=== PATIENT | female | born 1960 | race Caucasian/White ===

== ENCOUNTER 2018-01-04 10:28 | Inpatient (IN) | payer OTHER ==
[~2018-01-04] VITALS: Ht 165.1 cm; Wt 156.2 kg
[~2018-01-04 10:28] MED LIST: BENADRYL ALLERG25 MG PO; BENADRYL CREAM15 GM TOP; CLARITIN10 MG PO; CLEOCIN HCL300 M1 PO; FAMOTIDINE20 MG PO; FUROSEMIDE40 M1 PO; KEFLEX250 M1 PO; MOTRIN 400 MG400 MG PO
--- NOTE | 2018-01-04 11:07 | ED GI/GU/ABDOMINAL COMPLAINT ---
History of Present Illness General Chief Complaint: Abdominal Pain/Flank Pain Stated Complaint: ABD PAIN, ?HERNIA Source: patient, old records Exam Limitations: no limitations Vital Signs & Intake/Output Vital Signs & Intake/Output Vital Signs Date Time Temp Pulse Resp B/P B/P Pulse O2 O2 Flow FiO2 Mean Ox Delivery Rate 01/04 1909 98.5 88 20 138/67 94 Room Air 01/04 1741 98.3 86 20 141/63 93 Room Air 01/04 1410 98.7 88 20 136/64 94 Room Air 01/04 1257 98.4 88 20 123/63 94 Room Air 01/04 1033 97.3 87 20 142/81 94 Room Air Allergies Coded Allergies: cephalexin ([facility] 01/04/18) diphenhydramine (From BENADRYL) ([facility] 01/04/18) sulfamethoxazole (From BACTRIM) ([facility] 01/04/18) trimethoprim (From BACTRIM) ([facility] 01/04/18) Reconcile Medications Ibuprofen 400 MG TABLET 1 TAB PO Q6P PRN PAIN (Reported) Triage Note: PT TO ED C/O ABD PAIN X 2 DAYS, WORSE LAST NIGHT. STATES ABD FEELS HARD. H/O HERNIA SURGERY A FEW YEARS, STATES IT FEELS THE SAME. C/O N/V. Triage Nurses Notes Reviewed? yes LMP (ages 10-50): post menopausal ? N Is pt currently ? No Onset: Monday01/01/18 Duration: day(s):, getting worse Timing: remote history Quality/Severity: cramping, colicky Severity Numbers: 7 Location: groin, infraumbilical Radiation: no radiation Activities at Onset: none Prior Abdominal Problems: similar symptoms, incarcerated umbilical hernia s/p laproscopic repair with mesh HPI: 57F PMH incarcerated umbilical hernia s/p repair with mesh 2012 presents from home with four day history of nausea, vomiting, crampy colicky abdominal pain, decreased PO intake, diarrhea and decreased bowel movements with no flatus passed day of presentation. States that on Monday, she had nausea and vomiting of mucinous material, with abdominal cramping and one episode of diarrhea. States that she took off work on Monday given the symptoms, however continued to have crampy colicky abdominal pain rated 7 out of 10 nonradiating in the bilateral groin area. States that Monday night her stomach started to become more tense, and began having some dizziness with standing as well as continue vomiting and diarrhea. States that her last bowel movement was on Monday night. States that she had passed flatus on Monday, however today she has not had any flatus. States she has taken ibuprofen which only helped mildly. States that this pain feels similar to how her last hernia presented when it was strangulated back in 2012. States that there has been a viral bug going around at work, although she says she is more concerned about the abdomen tenseness and the decrease in bowel movements. Denies fevers, chills, night sweats, chest pain, shortness of breath, urinary symptoms, or increased lower extremity edema. States that she has chronic right lower extremity wounds, of which she sees the project controls specialist, but was unable to change her bandages yesterday given her abdominal pain. (Ondina VARELA,Marcelino) Past History Travel History Traveled to [place] past 21 day No Medical History Any Pertinent Medical History? none Neurological: NONE EENT: NONE Cardiovascular: NONE Respiratory: NONE Gastrointestinal: GERD Hepatic: NONE Renal: NONE Musculoskeletal: NONE Psychiatric: NONE Endocrine: NONE Blood Disorders: NONE Cancer(s): NONE RESOLUTION MANAGER/Reproductive: NONE History of MRSA: Yes History of VRE: No History of CDIFF: No Surgical History Surgical History: hernia repair-ventral (October 2012 with mesh) Psychosocial History Who do you live with Sister Services at Home None What is your primary language Romanian Tobacco Use: Current Daily Use Daily Tobacco Use Amount/Type: => 5 Cigarettes daily (20+ pack years) ETOH Use: denies use Illicit Drug Use: denies illicit drug use Family History Hx Contributory? No Employment History Employment Employed Profession/Employer Works as a handicapped tow car driver (Ondina VARELA,Marcelino) Review of Systems Review of Systems Constitutional: Reports: see HPI. Denies: chills, fever. EENTM: Reports: no symptoms. Respiratory: Denies: cough, short of breath. Cardiovascular: Denies: chest pain, palpitations. GI: Reports: abdominal pain, bloating, constipation, diarrhea, distention, nausea, vomiting. Genitourinary: Denies: discharge, dysuria, frequency. Musculoskeletal: Denies: back pain. Skin: Reports: dryness, erythema (RLE). (Marcelino Nj MD) Physical Exam Physical Exam General Appearance: well developed/nourished, alert, awake, anxious, obese Head: atraumatic Eyes: Bilateral: normal appearance. Ears, Nose, Throat, Mouth: hearing grossly normal Respiratory: normal breath sounds, lungs clear Cardiovascular: regular rate/rhythm, normal peripheral pulses Gastrointestinal: distention, tenderness, hernia, mass (reducible to inferior aspect), no peritoneal signs Rectal: deferred Extremities: tenderness (RLE), chronic wound to RLE, per patient is dryer than normal 2/2 decreased PO intake, redness, ulceration to lateral aspect approx 5 inch above lat malleoli Skin: warm/dry Core Measures ACS in differential dx? No Sepsis Present: No Sepsis Focused Exam Completed? No (Marcelino Nj MD) Progress Differential Diagnosis: bowel obstruction, gastritis, hernia, ovarian cyst, SBO Plan of Care: Orders Procedure Date/time Status Nothing by Mouth 01/05 B Active CBC WITHOUT DIFFERENTIAL 01/05 0600 Active BASIC ELECTROLYTES PLUS BUN&CR 01/05 0600 Active Pathway - chart 01/04 1704 Active ED Holding Orders 01/04 1633 Active Admit to inpatient 01/04 1633 Active Vital Signs 01/04 1633 Active Code Status 01/04 1633 Active Admit to inpatient 01/04 1630 Active Patient Data 01/04 1630 Active Add-on Test (ER Only) 01/04 1509 Active Intake & Output 01/04 1210 Active LACTIC ACID 01/04 1203 Complete URINALYSIS 01/04 1134 Complete COMPREHENSIVE METABOLIC PANEL 01/04 1134 Complete CBC WITHOUT DIFFERENTIAL 01/04 1134 Complete TRC EVALUATION (GEN) 01/04 UNK Active VTE Mechanical Prophylaxis 01/04 UNK Active Vital Signs 01/04 UNK Active Intake & Output 01/04 UNK Active Activity/Ambulation 01/04 UNK Active Current Medications Sig/Bria Start time Last Medication Dose Stop Time Status Admin Heparin Sodium 5,000 UNIT Q8 01/04 2200 AC (Porcine) Pantoprazole Sodium 40 MG DAILY 01/04 1704 AC 01/04 (Protonix) 1723 Acetaminophen 650 MG Q6P PRN 01/04 1700 AC (Tylenol) Dextrose/Sodium 1,000 ML .[id number] 01/04 1700 AC 01/04 Chloride 1723 (D5W-1/2 Normal Saline 1000ML) Ondansetron HCl 4 MG Q6P PRN 01/04 170 AC (Zofran) Oxycodone/ 1 TAB Q4P PRN 01/04 170 AC Acetaminophen (Percocet) Oxycodone/ 2 TAB Q4P PRN 01/04 1700 AC 01/04 Acetaminophen 1723 (Percocet) Promethazine HCl 25 MG Q6P PRN 01/04 1700 AC (Phenergen) 01/11 1659 Laboratory Tests 01/04/18 1336: Urinalysis LIGHT H, Urine Color YEL, Urine Clarity HAZY H, Urine pH 7.5, Ur Specific [place] 1.015, Urine Protein NEG, Urine Ketones NEG, Urine Nitrite NEG, Urine Bilirubin NEG, Urine Urobilinogen 0.2, Ur Leukocyte Esterase NEG, Ur Microscopic SEDIMENT EXAMINED, Urine RBC 1-3, Urine WBC 1-3 H, Ur Epithelial Cells MANY H, Urine Bacteria FEW H, Hyaline Casts RARE H, Urine Mucus MOD H, Urine Hemoglobin NEG, Urine Glucose NEG 01/04/18 1203: Anion Gap 7, Estimated GFR > 60, BUN/Creatinine Ratio 18.0, Glucose 121 H, Lactic Acid 1.2, Calcium 8.9, Total Bilirubin 0.5, AST 14, ALT 19, Alkaline Phosphatase 82, Total Protein 6.2 L, Albumin 3.3 L, Globulin 2.9, Albumin/ Globulin Ratio 1.1, CBC w Diff NO MAN DIFF REQ, RBC 4.70, MCV 88.4, MCH 29.5, MCHC 33.3, RDW 15.2 H, MPV 7.1 L, Gran % 85.5 H, Lymphocytes % 9.8 L, Monocytes % 3.9, Eosinophils % 0.1, Basophils % 0.7, Absolute Granulocytes 9.2 H, Absolute Lymphocytes 1.0 L, Absolute Monocytes 0.4, Absolute Eosinophils 0, Absolute Basophils 0.1 Radiology read came back with impression stating nondilated and dilated small- bowel loops in hernia sac with transition point suspicious for obstruction. Consult placed with surgeon professional wrestler. Spoke with surgical PA, orders are placed to admit patient to surgical service for management of SBO. Diagnostic Imaging: Viewed by Me: CT Scan. Radiology Impression: acute abnormality Initial ED EKG: none (Ondina VARELA,Marcelino) Departure Departure Disposition: STILL A PATIENT Condition: Stable Clinical Impression Primary Impression: SBO (small bowel obstruction) Referrals: Patient Has No Primary Care Dr (PCP/Family) Departure Forms: Customer Survey General Discharge Information (Ondina VARELA,Marcelino) Admission Note Documentation of Exam: Documentation of any treatments & extenuating circumstances including Concerns Regarding Discharge (functional status, medication knowledge or non-compliance, living conditions, etc.) that warrant an admission rather than observation: [ abdominal hernia, small bowel obstruction, may require operative v nonoperative approach.] Resident Co-Sign Statement Statement: ED Attending supervision documentation- [] I saw and evaluated the patient. I have also reviewed all the pertinent lab results and diagnostic results. I agree with the findings and the plan of care as documented in the Resident's documentation. Patient with large tender abdominal hernia with lack of flatus or stool x [address] consistent with SBO associated with hernia. Admitted to surgery. [] I have reviewed the ED Record and agree with the Resident's documentation. [] Additions or exceptions (if any) to the Resident's note and plan are summarized below: [] (Lynda VARELA, Chad)
[2018-01-04] MEDS ORDERED: IBUPROFEN400 M1 PO (11:48)
[2018-01-04 12:20] LABS: ABSOLUTE BASOPHIL COUNT 0.1 /CUMM (0.0-0.2); ABSOLUTE EOSINOPHIL COUNT 0 /CUMM (0.0-0.7); ABSOLUTE GRANULOCYTE CT 9.2 /CUMM (1.4-6.5); ABSOLUTE MONOCYTE COUNT 0.4 /CUMM (0.10-0.60); BASOPHIL % 0.7 % (0.0-2.0); EOSINOPHIL % 0.1 % (0-5); HEMATOCRIT 41.5 % (37-47); MEAN CORPUSCULAR HGB 29.5 PG (27.0-31.0); MEAN CORPUSCULAR HGB CONC 33.3 G/DL (33.0-37.0); MEAN CORPUSCULAR VOLUME 88.4 FL (81.0-99.0); MEAN PLATELET VOLUME 7.1 FL (7.4-10.4); PLATELET COUNT 353 /CUMM (130-400); RBC DISTRIBUTION WIDTH 15.2 % (11.5-14.5); WHITE BLOOD CELL COUNT 10.7 /CUMM (4.8-10.8)
[2018-01-04 12:33] LABS: GRANULOCYTE % 85.5 % (42.2-75.2)
--- NOTE | 2018-01-04 14:25 | CT SCAN REPORT ---
EXAMINATION: CT ABDOMEN AND PELVIS WITH CONTRAST CLINICAL INFORMATION: No flatus today, last BM yesterday, history of abdominal surgery, obese, cramping. Evaluate for SBO. COMPARISON: CT of the abdomen and pelvis 10/29/2012. TECHNIQUE: Multidetector volumetric imaging was performed of the abdomen and pelvis following IV administration of 95 mL of Optiray 320 intravenous contrast. Sagittal and coronal reformatted images were obtained on the technologist's workstation. DLP: 1690.21 mGy-cm. FINDINGS: LUNG BASES: The visualized lung bases are unremarkable. LIVER, GALLBLADDER, AND BILIARY TREE: The liver is normal in size, shape, and attenuation. No focal hepatic lesion or biliary ductal dilatation is present. Cholelithiasis is again noted. PANCREAS: Unremarkable. SPLEEN: Unremarkable. ADRENAL GLANDS: A 1.6 cm right adrenal adenoma is unchanged. The left adrenal gland is unremarkable. KIDNEYS AND URETERS: The kidneys are normal in size, shape, and attenuation. No hydronephrosis, hydroureter, or calculi seen. No perinephric stranding. BLADDER: Unremarkable. GASTROINTESTINAL TRACT: A portion of the transverse colon enters the large ventral hernia. There is no dilatation of the colon. There are multiple loops of small bowel within the large ventral hernia. Most of these are nondilated. However, there is a dilated segment of small bowel with some fecalization of contents. There is 1 transition point of dilated to nondilated small bowel in the right side of the hernia. ABDOMINAL WALL: There has been an increase in size of a large ventral hernia containing small and large bowel as described above. There is also a small amount of fluid. LYMPH NODES: Normal. VASCULAR: Unremarkable. PELVIC VISCERA: Unremarkable. OSSEOUS STRUCTURES: Unremarkable. IMPRESSION: 1. Cholelithiasis again noted. 2. No change in 1.6 cm right adrenal adenoma. 3. Increase in size of a large ventral hernia containing a portion of the transverse colon and multiple small-bowel loops. There are nondilated and dilated small-bowel loops in the hernia sac with a transition point in the right side of the sac suspicious for an obstruction at this point. The etiology is uncertain but could be an adhesion.
--- NOTE | 2018-01-04 16:51 | History & Physical Pre-Op ---
Rylan Zaman 01/04/18 1639: General Information and HPI MD Statement: I have seen and personally examined MENDEL VALDERRAMA and documented this H&P. The patient is a 57 year old F who presented with a patient stated chief complaint of [lower abdominal pain, hernia]. Source of Information: patient Exam Limitations: no limitations History of Present Illness: This is a 57-year-old female who has a history of an incarcerated ventral hernia with repair and lysis of adhesion, repair with mesh in October 2012 by Abhay Becerra MD who presents to the ER with worsening lower abdominal pain about her recurrent hernia, swelling and intermittent nausea. She states that a few months after her initial ventral hernia repair she started noticing the hernia returning, it was moderate in size until approximately a week or so ago when she noticed it getting larger and became more painful. 2 days ago she had worsening pain, had nausea, vomited a small amount. She considered it being a viral illness and did not seek medical care until today when her abdominal hernia got noticeably larger and more painful. She underwent CT scanning while in the emergency department which showed a large ventral hernia with possible small bowel obstruction and surgery was consulted for further management. Of note, patient has chronic cellulitis of her bilateral lower extremities, currently has a open wound to her right pretibial area and is erythematous, she has not been on antibiotics as outpatient however she is frequently on antibiotics for this. She denies any fever or flulike illness. She has a dressing on, she gets small amount of thin serous drainage from this area and has been caring for it at home herself. Allergies/Medications Allergies: Coded Allergies: cephalexin ([facility] 01/04/18) diphenhydramine (From BENADRYL) ([facility] 01/04/18) sulfamethoxazole (From BACTRIM) ([facility] 01/04/18) trimethoprim (From BACTRIM) ([facility]/04/18) Home Med list Ibuprofen 400 MG TABLET 1 TAB PO Q6P PRN PAIN (Reported) Past History Medical History Neurological: NONE EENT: NONE Cardiovascular: NONE Respiratory: NONE Gastrointestinal: GERD Hepatic: NONE Renal: NONE Musculoskeletal: NONE Psychiatric: NONE Endocrine: NONE Blood Disorders: NONE Cancer(s): NONE ASSET CARD CLERK/Reproductive: NONE Other Medical Hx: Morbid obesity ventral hernia History of MRSA: Yes History of VRE: No History of CDIFF: No Surgical History Pertinent Surgical History: hernia repair-ventral (October 2012 with mesh) Past Family/Social History Psychosocial History Services at Home None Smoking Status: Current Everyday Smoker ETOH Use: denies use Illicit Drug Use: denies illicit drug use Functional Ability ADLs Independent: dressing, eating, toileting, bathing. Ambulation: independent IADLs Independent: shopping, housework, finances, food prep, telephone, transportation , medication admin. 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 Constitutional: No chills fever or weight loss HEENT: No visual changes no sore throat no congestion Cardiovascular: No chest pain ,palpitation , chronic lower extremity edema Skin: Acute and chronic skin changes bilateral lower extremities Respiratory: No dyspnea cough sputum or hemoptysis GI: See HPI : No dysuria no hematuria Musclulo skeletal: No back pain no neck pain, Neurologic: No numbness no confusion Psych: No stress anxiety or depression,. Heme/endocrine: No bruising no bleeding no polyuria or polydipsia Immunology: No splenectomy or history of AIDS Exam & Diagnostic Data Last 24 Hrs of Vital Signs/I&O Vital Signs Date Time Temp Pulse Resp B/P B/P Pulse O2 O2 Flow FiO2 Mean Ox Delivery Rate 01/04 1410 98.7 88 20 136/64 94 Room Air 01/04 1257 98.4 88 20 123/63 94 Room Air 01/04 1033 97.3 87 20 142/81 94 Room Air Intake & Output 01/04 1600 01/04 0800 01/04 0000 Intake Total Output Total Balance Patient 347 lb Weight Weight Standing Scale Measurement Method Physical Exam: Well-developed well-nourished no apparent distress. Patient appears comfortable HEENT: Atraumatic, extraocular motion intact Neck: Supple, no lymphadenopathy Heart: Regular rate and rhythm no murmur Respiratory: No respiratory distress clear to auscultation bilateral Abdomen: morbid obesity Normal bowel sounds Large lower abdominal hernia at the midline, small amount of erythema induration and swelling at the inferior portion of the hernia on the skin surface. Hernia is firm, nonreducible, mildly tender. Extremities: 2+ lower extremity edema bilaterally. Chronic erythema and skin surface changes bilaterally to the pretibial region, dry skin insulin sloughing noted, small wound pretibial region right lower extremity with scant serous drainage, mild warmth and surrounding erythema Neuro: Alert and oriented x3 Psych: Mood affect normal, normal memory normal judgment. Skin: Warm and dry, no rash on exposed skin Last 24 Hrs of Labs/Jay: Laboratory Tests 01/04/18 1336: Urinalysis LIGHT H, Urine Color YEL, Urine Clarity HAZY H, Urine pH 7.5, Ur Specific [place] 1.015, Urine Protein NEG, Urine Ketones NEG, Urine Nitrite NEG, Urine Bilirubin NEG, Urine Urobilinogen 0.2, Ur Leukocyte Esterase NEG, Ur Microscopic SEDIMENT EXAMINED, Urine RBC 1-3, Urine WBC 1-3 H, Ur Epithelial Cells MANY H, Urine Bacteria FEW H, Hyaline Casts RARE H, Urine Mucus MOD H, Urine Hemoglobin NEG, Urine Glucose NEG 01/04/18 1203: Anion Gap 7, Estimated GFR > 60, BUN/Creatinine Ratio 18.0, Glucose 121 H, Lactic Acid 1.2, Calcium 8.9, Total Bilirubin 0.5, AST 14, ALT 19, Alkaline Phosphatase 82, Total Protein 6.2 L, Albumin 3.3 L, Globulin 2.9, Albumin/ Globulin Ratio 1.1, CBC w Diff NO MAN DIFF REQ, RBC 4.70, MCV 88.4, MCH 29.5, MCHC 33.3, RDW 15.2 H, MPV 7.1 L, Gran % 85.5 H, Lymphocytes % 9.8 L, Monocytes % 3.9, Eosinophils % 0.1, Basophils % 0.7, Absolute Granulocytes 9.2 H, Absolute Lymphocytes 1.0 L, Absolute Monocytes 0.4, Absolute Eosinophils 0, Absolute Basophils 0.1 Diagnostic Data Other Results PATIENT: MENDEL VALDERRAMA PRESENT AGE: 57 PATIENT ACCOUNT NO: [id number] : 62 LOCATION: [facility] ORDERING PHYSICIAN: Marcelino Nj MD SERVICE DATE: 01/04/18 EXAM TYPE: CAT - CT ABD & PELVIS W IV CONTRAST EXAMINATION: CT ABDOMEN AND PELVIS WITH CONTRAST CLINICAL INFORMATION: No flatus today, last BM yesterday, history of abdominal surgery, obese, cramping. Evaluate for SBO. COMPARISON: CT of the abdomen and pelvis 10/29/2012. TECHNIQUE: Multidetector volumetric imaging was performed of the abdomen and pelvis following IV administration of 95 mL of Optiray 320 intravenous contrast. Sagittal and coronal reformatted images were obtained on the technologist's workstation. DLP: 1690.21 mGy-cm. FINDINGS: LUNG BASES: The visualized lung bases are unremarkable. LIVER, GALLBLADDER, AND BILIARY TREE: The liver is normal in size, shape, and attenuation. No focal hepatic lesion or biliary ductal dilatation is present. Cholelithiasis is again noted. PANCREAS: Unremarkable. SPLEEN: Unremarkable. ADRENAL GLANDS: A 1.6 cm right adrenal adenoma is unchanged. The left adrenal gland is unremarkable. KIDNEYS AND URETERS: The kidneys are normal in size, shape, and attenuation. No hydronephrosis, hydroureter, or calculi seen. No perinephric stranding. BLADDER: Unremarkable. GASTROINTESTINAL TRACT: A portion of the transverse colon enters the large ventral hernia. There is no dilatation of the colon. There are multiple loops of small bowel within the large ventral hernia. Most of these are nondilated. However, there is a dilated segment of small bowel with some fecalization of contents. There is 1 transition point of dilated to nondilated small bowel in the right side of the hernia. ABDOMINAL WALL: There has been an increase in size of a large ventral hernia containing small and large bowel as described above. There is also a small amount of fluid. LYMPH NODES: Normal. VASCULAR: Unremarkable. PELVIC VISCERA: Unremarkable. OSSEOUS STRUCTURES: Unremarkable. IMPRESSION: 1. Cholelithiasis again noted. 2. No change in 1.6 cm right adrenal adenoma. 3. Increase in size of a large ventral hernia containing a portion of the transverse colon and multiple small-bowel loops. There are nondilated and dilated small-bowel loops in the hernia sac with a transition point in the right side of the sac suspicious for an obstruction at this point. The etiology is uncertain but could be an adhesion. DICTATED BY: Audie Stein MD DATE/TIME DICTATED:01/04/181346 TRAY DELIVERY AIDE:NESHA DATE/TIME TRANSCRIBED:01/04/181346 CONFIDENTIAL, DO NOT COPY WITHOUT APPROPRIATE AUTHORIZATION. <Electronically signed in Other Vendor System> SIGNED BY: Audie Stein MD 1425 Assessment/Plan Assessment/Plan: 57-year-old female with a history of strangulated bowel secondary to ventral hernia has a recurrent ventral hernia with incarcerated bowel with possible small bowel obstruction Patient does not require urgent surgery at this time however she will be admitted and monitoring of her clinical status with serial exams, bowel rest, n.p.o., IV fluids, pain medication as needed, iv antiemetics. Will treat with Gastrografin at 10 PM tonight and repeat Multiview abdominal x-ray in the morning to see if her bowel is functioning. If her obstruction becomes worse, will place NG tube and if there are signs of incarceration she will require urgent surgical intervention. We will obtain wound consult in the morning for the right lower extremity chronic cellulitis and chronic wound patient seen by Dr. Kline as well. Patient understands and agrees with plan As Ranked By This Provider Problem List: 1. Incarcerated ventral hernia Eliud JOSÉLuiz 01/04/181924: Attending MD Review Statement Attending Statement Attending MD Statement: examined this patient, discuss w/resident/PA/DIRECTOR OF LABOR AND DELIVERY, agreed w/resident/PA/DIRECTOR OF LABOR AND DELIVERY, discussed with family, reviewed EMR data (avail), reviewed images Attending Assessment/Plan: Patient seen and examined, agree with above. Patient with a large hernia, clinically likely present for many years. She did have laparoscopic repair ~5 years ago and thinks it recurred within a couple of months. 4-5 days ago she started not feeling well and having abdominal cramps with N/V, over the last couple of days pain worsened and she could not eat much so she came to the ED. In the Ed at time of exam she stated her pain was gone and she was no longer nauseous after a dose of tylenol. AVSS. Abd-obese, large periumbilical ventral hernia, soft, non-reducible. CT scan shows a large hernia with small and large bowel and a ?obstruction within the the hernia. Will admit, NPO/IVF. I explained to the patient that an ideal repair would involve preoperative weight loss as her risk of recurrence and complications is very high at this weight. If her pain and other symptoms do not improve then we may need to do repair despite the risks relieve the obstruction. Will give gastrograffin tonight and evaluate for an obstruction with AXR in AM and plan further care accordingly. Will also get wound care to evaluate her LE in the AM.
--- NOTE | 2018-01-04 17:00 | Admission Core Measures ---
Acute Coronary Syndrome (CM) ACS Core Measures Acute Coronary Syndrome Diagnosis No Congestive Heart Failure (NEW) CHF Core Measures Congestive Heart Failure Diagnosis No Cerebrovascular Accident CVA Core Measures CVA/TIA Diagnosis No Venous Thromboembolism VTE Core Lou (View Protocol) VTE Risk Factors Age>40 No Mechanical VTE Prophylaxis d/t N/A MechProphylax Ordered No VTE Pharm Prophylaxis d/t NA PharmProphylax ordered Problem List As ranked by this Provider includes Assessment & Plan 1. Incarcerated ventral hernia HOME MEDS Home Med List Ibuprofen 400 MG TABLET 1 TAB PO Q6P PRN PAIN (Reported)
[2018-01-04 23:28] VITALS: BP 113/67
[2018-01-05 07:00] VITALS: BP 129/74
--- NOTE | 2018-01-05 07:21 | PN- Student ---
See Addendum Tiff Kaye 01/05/18 0715: Subjective Subjective: 57 yo f smoker w/ hx of obesity and RLE cellulitis s/p ventral hernia repair is HD 2 for SBO likely 2/2 incarcerated ventral hernia was seen at bedside. Pt had no acute events overnight, complained of nausea around 1 am, persistent discomfort, and pain only with coughing. Pt last BM was yesterday evening after admission that were "small chunks." Pt passed flatus last night and a little this morning, voiding urine spontenously. Overall, reports improvement from yesterday. Pt denies sob, chest pain, fever, chills, nausea or vomitting. Objective Objective: Vital Signs Date Time Temp Pulse Resp B/P B/P Pulse O2 O2 Flow FiO2 Mean Ox Delivery Rate 01/04 2328 97.8 81 20 113/67 92 Room Air 01/04 1909 98.5 88 20 138/67 94 Room Air 01/04 1741 98.3 86 20 141/63 93 Room Air 01/04 1410 98.7 88 20 136/64 94 Room Air 01/04 1257 98.4 88 20 123/63 94 Room Air 01/04 1033 97.3 87 20 142/81 94 Room Air Intake & Output 01/05 0800 01/05 0000 01/04 1600 Intake Total 480 225 Output Total Balance 480 225 Intake, IV 450 225 Intake, Oral 30 0 Number 0 0 Bowel Movements Patient 344 lb 347 lb Weight Weight Bed scale Standing Scale Measurement Method Gen: obese, middle aged female, appears older than stated age, in mild distress CV: RRR, no m/r/g Respiratory: vesicular b/l, poor respirtory effort Abdomen: morbid obesity and distended, large abdomin with protuding ventral hernia right of midline that is firm and non-reducible Ext: chronic pretibial erythema, dry and flaky chronic wound on right pretibial area w/ minimal amounts of pus and serous drainage, surrounding warmth and erythema Psych: Alert and oriented, mood affect normal, memory and judgment intact Results Results: Laboratory Tests 01/04/18 1336: Urinalysis LIGHT H, Urine Color YEL, Urine Clarity HAZY H, Urine pH 7.5, Ur Specific [place] 1.015, Urine Protein NEG, Urine Ketones NEG, Urine Nitrite NEG, Urine Bilirubin NEG, Urine Urobilinogen 0.2, Ur Leukocyte Esterase NEG, Ur Microscopic SEDIMENT EXAMINED, Urine RBC 1-3, Urine WBC 1-3 H, Ur Epithelial Cells MANY H, Urine Bacteria FEW H, Hyaline Casts RARE H, Urine Mucus MOD H, Urine Hemoglobin NEG, Urine Glucose NEG 01/04/18 1203: Anion Gap 7, Estimated GFR > 60, BUN/Creatinine Ratio 18.0, Glucose 121 H, Lactic Acid 1.2, Calcium 8.9, Total Bilirubin 0.5, AST 14, ALT 19, Alkaline Phosphatase 82, Total Protein 6.2 L, Albumin 3.3 L, Globulin 2.9, Albumin/ Globulin Ratio 1.1, CBC w Diff NO MAN DIFF REQ, RBC 4.70, MCV 88.4, MCH 29.5, MCHC 33.3, RDW 15.2 H, MPV 7.1 L, Gran % 85.5 H, Lymphocytes % 9.8 L, Monocytes % 3.9, Eosinophils % 0.1, Basophils % 0.7, Absolute Granulocytes 9.2 H, Absolute Lymphocytes 1.0 L, Absolute Monocytes 0.4, Absolute Eosinophils 0, Absolute Basophils 0.1 Assessment/Plan Assessment: 57yo f w/ hx of obesity, HTN, OA, RCC s/p r. nephrectomy is HD 5 for SBO 2/2 strangulated ventral hernia being conserveratively managed due to multiple comorbid conditions, symptomatic improvement. Plan: Keep NPO NPO/IVF Pain management Wound care to chronic pretibial wound F/u AM gastrograffin and axr to evaluate and plan further care Latanya Lin 01/05/18 0738: Assessment/Plan Plan: agree with student note above This 57-year-old morbidly obese female with a history of strangulated bowel secondary to recurrent ventral hernia with incarcerated bowel and associated sbo, which may be resolving with +flatus overnight awaiting xray this morning s/p gastrograffin last night f/u labs continue npo / ivf for now wound care consult for chronic lower extremity wound hep sc - dvt ppx oob/ambulation as able will d/w
[2018-01-05 10:35] LABS: ABSOLUTE BASOPHIL COUNT 0 /CUMM (0.0-0.2); ABSOLUTE EOSINOPHIL COUNT 0.2 /CUMM (0.0-0.7); ABSOLUTE GRANULOCYTE CT 4.5 /CUMM (1.4-6.5); ABSOLUTE MONOCYTE COUNT 0.4 /CUMM (0.10-0.60); BASOPHIL % 0.3 % (0.0-2.0); EOSINOPHIL % 2.4 % (0-5); GRANULOCYTE % 63.2 % (42.2-75.2); HEMATOCRIT 37.6 % (37-47); MEAN CORPUSCULAR HGB 29.5 PG (27.0-31.0); MEAN CORPUSCULAR HGB CONC 32.9 G/DL (33.0-37.0); MEAN CORPUSCULAR VOLUME 89.6 FL (81.0-99.0); MEAN PLATELET VOLUME 7.1 FL (7.4-10.4); PLATELET COUNT 297 /CUMM (130-400); RBC DISTRIBUTION WIDTH 14.9 % (11.5-14.5); RED BLOOD CELL CT 4.19 /CUMM (4.20-5.40); WHITE BLOOD CELL COUNT 7.1 /CUMM (4.8-10.8)
--- NOTE | 2018-01-05 13:39 | RADIOLOGY REPORT ---
EXAMINATION: XR ABDOMEN MULTIPLE VIEWS CLINICAL INDICATION: By mouth Gastrografin at 10:00 PM on 01/04/2018. Presence of diagnosis of incarcerated hernia COMPARISON: 01/04/2018 CT of the abdomen and pelvis. TECHNIQUE: 2 views of the abdomen. FINDINGS: Contrast material is seen throughout the entirety of the nondistended colon. The colon is tortuous. Small bowel loops contain scattered foci of gas without obvious distention. IMPRESSION: Contrast is seen throughout the extent of the nondistended colon.
--- NOTE | 2018-01-05 14:05 | PN- Student ---
See Addendum Subjective Subjective: Pt d/w Lauren @ wound care. Dressing on right pretibial wound changed w/ xeroform , abd pad per pt request, and curlex wrapped loosely by student. Minimal serosanguinous drainage.
[2018-01-05 14:58] VITALS: BP 120/72
[2018-01-05 21:53] VITALS: BP 102/66
[2018-01-06 06:00] VITALS: BP 124/60
--- NOTE | 2018-01-06 09:30 | PN- General Surgery ---
Subjective Subjective: Tolerating fulls. No nausea and +bm last night. Reports slight abdominal discomfort / soreness only with coughing. Seen by Lauren from wound care yesterday, who evaluated and dressed her lower extremity wounds. Patient understands plan for elective repair of ventral hernia, which she hopes to do after she obtains insurance and loses weight. Objective Vital Signs and I&Os Vital Signs Date Time Temp Pulse Resp B/P B/P Pulse O2 O2 Flow FiO2 Mean Ox Delivery Rate 01/06 0600 98.2 78 20 124/60 91 Room Air 01/05 2153 98.2 80 18 102/66 92 Room Air 01/05 1458 98.2 84 20 120/72 93 01/05 1137 Room Air Room Air Intake & Output 01/06 1600 01/06 0801/06 0000 01/05 1600 01/05 0801/05 0000 Intake Total 200 400 980 480 225 Output Total Balance 200 400 980 480 225 Intake, IV 500 450 225 Intake, Oral 200 400 480 30 0 Number 1 0 0 Bowel Movements Patient 344 lb Weight Weight Bed scale Measurement Method Physical Exam: General - alert & oriented x 3. comfortable. no acute distress. Lungs - clear bilaterally. no w/r/r. Cardiac - s1s2. reg. Abdomen - morbidly obese. large ventral hernia remains unchanged. some tenderness with palpation. not diffusely tender. Extremities - warm bilaterally. dressing on right pretibial wound intact ( changed yesterday by Lauren w/ xeroform, abd pad, and kerlex wrapped loosely). Current Medications: Current Medications Sig/Bria Start time Last Medication Dose Route Stop Time Status Admin Acetaminophen 650 MG Q6P PRN 01/04 170 AC PO Dextrose/Sodium 1,000 ML .[id number] 01/04 170 DC 01/04 Chloride IV 1723 Docusate Sodium 100 MG BID 01/06 0925 UNVr PO Heparin Sodium 5,000 UNIT Q8 01/04 2200 AC 01/06 (Porcine) SC 0528 Ondansetron HCl 4 MG Q6P PRN 01/04 170 AC IV Oxycodone/ 1 TAB Q4P PRN 01/04 170 DC Acetaminophen PO Oxycodone/ 2 TAB Q4P PRN 01/04 1700 DC 01/06 Acetaminophen PO 0533 Pantoprazole Sodium 40 MG DAILY 01/04 1704 AC 01/05 IV 0851 Patient Medication 1 ED ONE ONE 01/06 2000 [place] Teaching ED 01/05 2001 Promethazine HCl 25 MG Q6P PRN 01/04 1700 AC IV 01/11 1659 Results Last 48 Hours of Labs: Laboratory Tests 01/05 01/04 0820 1336 Chemistry Sodium (137 - 145 mmol/L) 139 Potassium (3.5 - 5.1 mmol/L) 3.9 Chloride (98 - 107 mmol/L) 103 Carbon Dioxide (22 - 30 mmol/L) 29 Anion Gap (5 - 16) 6 BUN (7 - 17 mg/dL) 10 Creatinine (0.5 - 1.0 mg/dL) 0.7 Estimated GFR (>60 ml/min) > 60 BUN/Creatinine Ratio (7 - 25 %) 14.3 Hematology CBC w Diff NO MAN DIFF REQ WBC (4.8 - 10.8 /CUMM) 7.1 RBC (4.20 - 5.40 /CUMM) 4.19 L Hgb (12.0 - 16.0 G/DL) 12.4 Hct (37 - 47 %) 37.6 MCV (81.0 - 99.0 FL) 89.6 MCH (27.0 - 31.0 PG) 29.5 MCHC (33.0 - 37.0 G/DL) 32.9 L RDW (11.5 - 14.5 %) 14.9 H Plt Count (130 - 400 /CUMM) 297 MPV (7.4 - 10.4 FL) 7.1 L Gran % (42.2 - 75.2 %) 63.2 Lymphocytes % (20.5 - 51.1 %) 28.5 Monocytes % (1.7 - 9.3 %) 5.6 Eosinophils % (0 - 5 %) 2.4 Basophils % (0.0 - 2.0 %) 0.3 Absolute Granulocytes (1.4 - 6.5 /CUMM) 4.5 Absolute Lymphocytes (1.2 - 3.4 /CUMM) 2.0 Absolute Monocytes (0.10 - 0.60 /CUMM) 0.4 Absolute Eosinophils (0.0 - 0.7 /CUMM) 0.2 Absolute Basophils (0.0 - 0.2 /CUMM) 0 Urines Urinalysis LIGHT H Urine Color (YEL,AMB,STR) YEL Urine Clarity (CLEAR) HAZY H Urine pH (5.0 - 8.0) 7.5 Ur Specific [place] (1.001 - 1.035) 1.015 Urine Protein (NEG,<30 MG/DL) NEG Urine Ketones (NEG) NEG Urine Nitrite (NEG) NEG Urine Bilirubin (NEG) NEG Urine Urobilinogen (0.1 - 1.0 EU/dl) 0.2 Ur Leukocyte Esterase (NEG) NEG Ur Microscopic SEDIMENT EXAMINED Urine RBC (0 - 5 /HPF) 1-3 Urine WBC (0 - 2 /HPF) 1-3 H Ur Epithelial Cells (NONE,FEW) MANY H Urine Bacteria (NEG/NONE) FEW H Hyaline Casts (0/LPF) RARE H Urine Mucus (FEW,NONE) MOD H Urine Hemoglobin (NEG) NEG Urine Glucose (N MG/DL) NEG 01/04 1203 Chemistry Sodium (137 - 145 mmol/L) 138 Potassium (3.5 - 5.1 mmol/L) 4.3 Chloride (98 - 107 mmol/L) 102 Carbon Dioxide (22 - 30 mmol/L) 29 Anion Gap (5 - 16) 7 BUN (7 - 17 mg/dL) 9 Creatinine (0.5 - 1.0 mg/dL) 0.5 Estimated GFR (>60 ml/min) > 60 BUN/Creatinine Ratio (7 - 25 %) 18.0 Glucose (65 - 99 mg/dL) 121 H Lactic Acid (0.7 - 2.1 mmol/L) 1.2 Calcium (8.4 - 10.2 mg/dL) 8.9 Total Bilirubin (0.2 - 1.3 mg/dL) 0.5 AST (14 - 36 U/L) 14 ALT (9 - 52 U/L) 19 Alkaline Phosphatase (<127 U/L) 82 Total Protein (6.3 - 8.2 g/dL) 6.2 L Albumin (3.5 - 5.0 g/dL) 3.3 L Globulin (1.9 - 4.2 gm/dL) 2.9 Albumin/Globulin Ratio (1.1 - 2.2 %) 1.1 Hematology CBC w Diff NO MAN DIFF REQ WBC (4.8 - 10.8 /CUMM) 10.7 RBC (4.20 - 5.40 /CUMM) 4.70 Hgb (12.0 - 16.0 G/DL) 13.8 Hct (37 - 47 %) 41.5 MCV (81.0 - 99.0 FL) 88.4 MCH (27.0 - 31.0 PG) 29.5 MCHC (33.0 - 37.0 G/DL) 33.3 RDW (11.5 - 14.5 %) 15.2 H Plt Count (130 - 400 /CUMM) 353 MPV (7.4 - 10.4 FL) 7.1 L Gran % (42.2 - 75.2 %) 85.5 H Lymphocytes % (20.5 - 51.1 %) 9.8 L Monocytes % (1.7 - 9.3 %) 3.9 Eosinophils % (0 - 5 %) 0.1 Basophils % (0.0 - 2.0 %) 0.7 Absolute Granulocytes (1.4 - 6.5 /CUMM) 9.2 H Absolute Lymphocytes (1.2 - 3.4 /CUMM) 1.0 L Absolute Monocytes (0.10 - 0.60 /CUMM) 0.4 Absolute Eosinophils (0.0 - 0.7 /CUMM) 0 Absolute Basophils (0.0 - 0.2 /CUMM) 0.1 Assessment/Plan Assessment/Plan This 57-year-old morbidly obese female with recurrent ventral hernia and chronically incarcerated bowel, admitted with sbo that has resolved tolerating fulls. advance diet tylenol as needed for discomfort. would avoid narcotics for this soreness. continue local wound care to lower legs, as suggested by Lauren from wound care hep sc - dvt ppx oob/ambulation as able elective repair of the large abdominal hernia once she obtains insurance and ideally loses weight smoking cessation counseling d/c home later today if tolerates diet advancement pt understands and agrees with plan will d/w Core Measures Venous Thromboembolism VTE Risk Factors Age>40 No Mechanical VTE Prophylaxis d/t N/A MechProphylax Ordered No VTE Pharm Prophylaxis d/t NA PharmProphylax ordered
--- NOTE | 2018-01-06 09:41 | Surg Short-stay <48hrs Dis Sum ---
Visit Information Visit Dates Admission Date: 01/04/18 Discharge Date: 01/06/18 Surgical Short Stay DC Summary Admission Diagnosis: large ventral hernia, chronically incarcerated small bowel obstruction Final Diagnosis: large ventral hernia, chronically incarcerated small bowel obstruction (resolved) Procedure(s): bowel rest, conservative treatment sbo Summary/Significant Findings: Presented to the ED on 01/04/18 with abdominal pain related to a longstanding large ventral hernia, which is chronically incarcerated, and an associated small bowel obstruction. Conservatively treated with bowel rest until resolution of the small bowel obstruction. Slow diet advancement, as tolerated. Wound care consult obtained for her chronic lower extremity wounds, which was evaluated by Lauren. The patient intends to obtain health insurance and lose weight ideally, prior to planning for elective repair of this chronic large ventral hernia. Condition at Discharge: stable Discharge Disposition: home or self care Discharge instructions provided to patient/family: Yes Post discharge follow-up plan: 2 week follow up with , unless necessity to return to the ED for acute symptoms
[2018-01-06] MEDS ORDERED: TYLENOL325 M1 PO (09:46)
[2018-01-06] MEDS ORDERED: DOCUSATE SODIU100 M3 PO (09:46)
--- NOTE | 2018-01-06 09:46 | Patient Discharge Instructions ---
Discharge Instructions General Discharge Information You were seen/treated for: chronic large ventral hernia small bowel obstruction chronic lower extremity wounds You had these procedures: bowel rest, conservative treatment sbo Watch for these problems: fever>101.3, increased pain, recurrent nausea/vomiting, dizziness, shortness of breath, chest pains Other wound care: continue lower extremity wound care xeroform / ABD pads / loose kerlex guaze Diet Continue normal diet: Yes Recommended Diet: Regular Activity Full Activity/No Limits: No Activity Self Limited: Yes Pounds, do NOT lift more than: 10 Other activity limits: no heavy lifting. no strenuous activity. Acute Coronary Syndrome Inclusion Criteria At DC or during hospital stay patient has or had the following: ACS DIAGNOSIS No Discharge Core Measures Meds if any: Prescribed or Continued at Discharge Meds if any: NOT Prescribed or Continued at Discharge Congestive Heart Failure Inclusion Criteria At DC or during hospital stay patient has or had the following: CHF DIAGNOSIS No Discharge Core Measures Meds if any: Prescribed or Continued at Discharge Meds if any: NOT Prescribed or Continued at Discharge Cerebrovascular accident Inclusion Criteria At DC or during hospital stay patient has or had the following: CVA/TIA Diagnosis No Discharge Core Measures Meds if any: Prescribed or Continued at Discharge Meds if any: NOT Prescribed or Continued at Discharge Venous thromboembolism Inclusion Criteria VTE Diagnosis No VTE Type NONE VTE Confirmed by (Test) NONE Discharge Core Measures - Per Current guidelines, there needs to be overlap - treatment for the first 5 days of Warfarin therapy. - If discharged on Warfarin prior to 5 days of - overlap therapy, the patient will need to be - assessed for post discharge needs including - *Post discharge parental anticoagulation - *Warfarin and/or parental anticoagulation education - *Follow up date to check INR post discharge At least 5 days overlap therapy as Inpatient No Meds if any: Prescribed or Continued at Discharge Note: Overlap Therapy is Warfarin and Anticoagulant Meds if any: NOT Prescribed or Continued at Discharge
== END 2018-01-06 13:25 | DRG 394 ==
LOC: ERH 10:28 → 2NB 16:33 → ERHI 16:33 → EDBEDREQ 16:52 → ENRESERV 17:34 → ENTRNSPT 18:25 → EDTRNSPTSTS 18:26 → EDTRNSPT 18:44 → 2NB 19:22 → CMPTRNSPT 19:33 → ENPENDDIS 01-06 10:23 → 2NB 01-06 13:25
PROVIDERS: Physical Medicine & Rehabilitation; Physician Assistant Surgical
DX: K43.6 Other and unspecified ventral hernia with obstruction, without gangrene (principal); Z68.43 Body mass index [BMI] 50.0-59.9, adult; L97.818 Non-pressure chronic ulcer of other part of right lower leg with other specified severity; E66.01 Morbid (severe) obesity due to excess calories; I10 Essential (primary) hypertension; M19.90 Unspecified osteoarthritis, unspecified site; I83.018 Varicose veins of right lower extremity with ulcer other part of lower leg; F17.210 Nicotine dependence, cigarettes, uncomplicated; Z88.1 Allergy status to other antibiotic agents; Z88.2 Allergy status to sulfonamides; Z88.8 Allergy status to other drugs, medicaments and biological substances; Z87.891 Personal history of nicotine dependence
CPT/HCPCS: 2NBSP; 36415; 74021; 74177; 81001; 82436; 96374; J0131; J1644; J7042